=== PATIENT | female | born 1995 | race African-American/Black ===

== ENCOUNTER 2017-09-17 23:32 | Emergency (ER) | payer MEDICAID ==
[~2017-09-17] VITALS: Ht 160 cm; Wt 63.0 kg
[2017-09-18 07:32] LABS: CLARITY URINE CLEAR (CLEAR); COLOR URINE YELLOW (YELLOW); KETONES URINE 3+ (NEGATIVE); LEUKOCYTE ESTERASE URINE NEGATIVE (NEGATIVE); NITRITE URINE NEGATIVE (NEGATIVE); OCCULT BLOOD URINE NEGATIVE (NEGATIVE); PH URINE 5.5 (4.5-8.0); PROTEIN URINE NEGATIVE (NEGATIVE); SPECIFIC GRAVITY URINE 1.019 (1.005-1.030); UROBILINOGEN URINE 0.2 E.U./dL (0.2-1.0)
[2017-09-18 07:36] LABS: BASOPHILS % 0.7 % (0.0-2.0); EOSINOPHILS % 1.4 % (0.0-5.0); HEMATOCRIT. 32.9 % (36.0-48.0); HEMOGLOBIN. 10.6 g/dL (12.0-16.0); LYMPHOCYTES % 32.7 % (20.0-50.0); MEAN CORPUSCULAR HEMOGLOBIN 29.4 pg (28.0-32.0); MEAN CORPUSCULAR VOLUME 91.4 fL (81.0-99.0); MONOCYTES % 7.1 % (2.0-8.0); NEUTROPHILS % 58.1 % (40.0-76.0); PLATELET 283 x1000/uL (130-400); RED CELL DISTRIBUTION WIDTH 14.7 % (11.6-14.6)
[2017-09-18 07:46] LABS: CHLORIDE 106 mEq/L (98-107)
[2017-09-18 08:07] LABS: B-HCG QUANTITATIVE 1373 mIU/mL (<3)
[2017-09-18 10:40] VITALS: BP 116/53
== END 2017-09-18 10:41 | disposition home or self-care (01) ==
LOC: ER 09-18 06:49
DX: O26.891 Other specified pregnancy related conditions, first trimester (principal); R20.0 Anesthesia of skin; M25.512 Pain in left shoulder; R10.30 Lower abdominal pain, unspecified; O99.011 Anemia complicating pregnancy, first trimester; Z3A.01 Less than 8 weeks gestation of pregnancy
CPT/HCPCS: 36415; 76801; 76817; 80053; 81003; 81025; 84702; 85025; 99285; Z7610

== ENCOUNTER 2017-10-31 04:27 | Observation (INO) | payer SELFPAY ==
[~2017-10-31] VITALS: Ht 154.9 cm; Wt 62.6 kg
[2017-10-31 05:32] LABS: BASOPHILS % 0.2 % (0.0-2.0); EOSINOPHILS % 1.1 % (0.0-5.0); HEMOGLOBIN. 11.5 g/dL (12.0-16.0); LYMPHOCYTES % 14.4 % (20.0-50.0); MEAN CORPUSCULAR VOLUME 91.5 fL (81.0-99.0); MEAN PLATELET VOLUME 8.3 fl (7.4-10.4); MONOCYTES % 6.1 % (2.0-8.0); NEUTROPHILS % 78.2 % (40.0-76.0); PLATELET 288 x1000/uL (130-400); RED BLOOD CELL COUNT 3.71 mill/uL (4.2-5.4); RED CELL DISTRIBUTION WIDTH 14.1 % (11.6-14.6)
[2017-10-31 05:35] LABS: CHLORIDE 106 mEq/L (98-107)
[2017-10-31 05:35] LABS: KETONES URINE 2+ (NEGATIVE); LEUKOCYTE ESTERASE URINE 3+ (NEGATIVE); NITRITE URINE POSITIVE (NEGATIVE); OCCULT BLOOD URINE 3+ (NEGATIVE); PROTEIN URINE 3+ (NEGATIVE); SPECIFIC GRAVITY URINE 1.028 (1.005-1.030)
[2017-10-31 05:54] LABS: CLARITY URINE CLOUDY (CLEAR); COLOR URINE BLOODY (YELLOW)
[2017-10-31 06:26] LABS: B-HCG QUANTITATIVE 1770 mIU/mL (<3)
[2017-10-31] MEDS ORDERED: ACETAMINOPHEN 500MG TABLET PO ONE (06:30)
[2017-10-31] MEDS ORDERED: SODIUM CHLORIDE 0.9% 1,000 ML IV ONE (06:30)
[2017-10-31] MEDS ORDERED: ACETAMINOPHEN 325MG TABLET PO ONE (13:30)
[2017-10-31] MEDS ORDERED: NITROFURANTOIN 100MG M/M CAPSULE PO NR (13:45)
[2017-10-31] MEDS ORDERED: MORPHINE SULFATE 4 MG/ML CPJ (NOT FOR IM USE) IV NR (13:45)
[2017-10-31] MEDS ORDERED: ONDANSETRON HCL 4MG/2ML VIAL IV ONE (14:45)
[2017-10-31] MEDS ORDERED: PNV1TABL76 MT (15:44)
[2017-10-31 15:45] VITALS: BP 106/49
[2017-10-31 15:55] VITALS: BP 106/49
[2017-10-31 17:55] LABS: BASOPHILS % 0.2 % (0.0-2.0); EOSINOPHILS % 0.3 % (0.0-5.0); HEMATOCRIT. 29.7 % (36.0-48.0); HEMOGLOBIN. 10.1 g/dL (12.0-16.0); MEAN CORPUSCULAR HEMOGLOBIN 31.4 pg (28.0-32.0); MEAN CORPUSCULAR VOLUME 92.2 fL (81.0-99.0); MEAN PLATELET VOLUME 8.6 fl (7.4-10.4); MONOCYTES % 6.2 % (2.0-8.0); NEUTROPHILS % 82.3 % (40.0-76.0); PLATELET 243 x1000/uL (130-400); RED BLOOD CELL COUNT 3.22 mill/uL (4.2-5.4); RED CELL DISTRIBUTION WIDTH 13.7 % (11.6-14.6)
[2017-10-31 18:25] LABS: INR 1.1; PARTIAL THROMBOPLASTIN TIME 29.6 sec (23.4-31.0); PROTHROMBIN TIME 11.8 sec (9.4-11.6)
[2017-10-31] MEDS ORDERED: DEXT 5%/LACTATED RINGERS 1,000 ML IV SCH (18:30)
[2017-10-31 20:00] VITALS: BP 123/68
[2017-11-01] VITALS: BP 102/53
[2017-11-01 04:00] VITALS: BP 104/53
[2017-11-01 08:00] VITALS: BP 104/55
[2017-11-01] MEDS: ACETAMINOPHEN 325MG TABLET PO PRN ×2 (09:03)
[2017-11-01] MEDS ORDERED: MISO200T PO (09:43)
[2017-11-01] MEDS ORDERED: IBUP-1649 PO (09:43)
[2017-11-01] MEDS ORDERED: IBUP100T7 PO (09:49)
[2017-11-01 09:50] VITALS: BP 104/55
== END 2017-11-01 10:50 | disposition home or self-care (01) ==
LOC: ER 04:27 → INTOOBSV 13:43 → 6EST 13:43 → ENRESERV 14:55
PROVIDERS: ADMIT Obstetrics & Gynecology; ATTEND Obstetrics & Gynecology
DX: O03.9 Complete or unspecified spontaneous abortion without complication (principal); Z3A.10 10 weeks gestation of pregnancy; Z90.49 Acquired absence of other specified parts of digestive tract
CPT/HCPCS: 36415; 76801; 76817; 80053; 81003; 81025; 84702; 85018; 85025; 85610; 85730; 86850; 86900; 86901; 87086; 96361; 96374; 96375; 99285; G0378; J2270; J2405; J7030